=== PATIENT | female | born 1980 | race American Indian/Alaskan Native ===

== ENCOUNTER 2017-01-25 23:46 | Emergency (ER) | payer MEDICARE ==
[2017-01-26 01:00] LABS: Basophils % (Auto) 0.6 % (0.0-1.8); Eosinophils % (Auto) 2.4 % (0.0-4.3); Hematocrit 37.1 % (30.3-42.9); Hemoglobin 12.2 gm/dl (10.1-14.3); Mean Corpuscular HGB Conc 33 % (30-34); Mean Corpuscular Hemoglobin 27 pg (28-32); Mean Corpuscular Volume 83 fl (79-97); Platelet Count 437 K/mm3 (140-440); Red Blood Count 4.46 M/mm3 (3.65-5.03); Red Cell Distribution Width 17.7 % (13.2-15.2); White Blood Count 9.1 K/mm3 (4.5-11.0)
[2017-01-26 01:14] LABS: Blood Urea Nitrogen 7 mg/dL (7-17); Calcium 9.3 mg/dL (8.4-10.2); Carbon Dioxide 25 mmol/L (22-30); Glucose 84 mg/dL (65-100)
[2017-01-26 01:15] LABS: Anion Gap 17 mmol/L; Chloride 98.6 mmol/L (98-107); Potassium 3.8 mmol/L (3.6-5.0); Sodium 137 mmol/L (137-145)
[2017-01-26] MEDS ORDERED: TYLENOL ONE ×2 (02:07)
--- NOTE | 2017-01-26 03:14 | Cat Scan Report ---
FINAL REPORT PROCEDURE: CT HEAD/BRAIN WO CON TECHNIQUE: Computerized tomography of the head was performed without contrast material. HISTORY: pituitary tumor, headache COMPARISON: No prior studies are available for comparison. FINDINGS: Skull and scalp: Normal. Paranasal sinuses: Normal. Ventricles and subarachnoid spaces: Normal. Cerebrum: No evidence of hemorrhage, acute infarction or mass . Cerebellum and brainstem: No evidence of hemorrhage, acute infarction or mass. Vasculature: Normal. Comments: No evidence of pituitary tumor is seen.. IMPRESSION: Normal Examination
[2017-01-26 05:31] VITALS: BP 124/86
--- NOTE | 2017-01-30 11:28 | ED Elopement Review ---
ED Pt Elopement review - Results review Lab results: Laboratory Tests 01/26/17 01/26/17 01/26/17 00:34 00:34 00:34 WBC 9.1 RBC 4.46 Hgb 12.2 Hct 37.1 MCV 83 MCH 27 L MCHC 33 RDW 17.7 H Plt Count 437 Lymph % (Auto) 22.9 Jennings % (Auto) 4.9 Eos % (Auto) 2.4 Baso % (Auto) 0.6 Lymph # 2.1 Jennings # 0.4 Eos # 0.2 Baso # 0.1 Seg Neutrophils % 69.2 Seg Neutrophils # 6.3 Sodium 137 Potassium 3.8 Chloride 98.6 Carbon Dioxide 25 Anion Gap 17 BUN 7 Creatinine 0.7 Estimated GFR > 60 BUN/Creatinine Ratio 10.00 Glucose 84 Calcium 9.3 HCG, Qual Negative - Call Back decision Pt Call Back Decision: No action required
== END 2017-01-26 01:00 | disposition left against medical advice (07) ==
LOC: ED 23:46
DX: R51 Headache (principal); R25.1 Tremor, unspecified; Z53.21 Procedure and treatment not carried out due to patient leaving prior to being seen by health care provider
CPT/HCPCS: 36415; 70450; 80048; 84703; 85025